=== PATIENT | female | born 1965 | race Caucasian/White ===

== ENCOUNTER → 2016-11-21 | Outpatient (CLI) | payer BC | LOC: RAD 10:38 | DX: M79.675 Pain in left toe(s) (principal) ==

== ENCOUNTER → 2017-07-22 | Outpatient (CLI) | payer BC | LOC: ULTRA 13:00 | DX: Z12.31 Encounter for screening mammogram for malignant neoplasm of breast (principal); J18.9 Pneumonia, unspecified organism; M25.78 Osteophyte, vertebrae; R10.2 Pelvic and perineal pain; Z98.890 Other specified postprocedural states; Z90.710 Acquired absence of both cervix and uterus; Z90.722 Acquired absence of ovaries, bilateral ==

== ENCOUNTER 2018-07-17 09:12 | Emergency (ER) | payer BC ==
[~2018-07-17] VITALS: Ht 152.4 cm; Wt 72.1 kg
--- NOTE | ~2018-07-17 | EKG ---
[address] [address] ELECTROCARDIOGRAM REPORT Name: DARRICKORESTES Room #: [facility]ITAL[facility] [id number] Admission: 07/17/18 Attend Phys: Discharge: 07/17/18 Date of : 61 Report #: [id number] THIS REPORT FOR: //name// [facility] ED Test Date: 2018-07-17 Test Time: 09:51:52 Pat Name: FELIPE HOLLINGSWORTH Department: Room: Gender: F Inspector Set Up And Lay Out: KFRIEDT : 1965 Requested By: Jun Sommers Order Number: [id number] MD: Toñito Johnson Measurements Intervals [place] Rate: 57 P: 20 OK: 179 QRS: 23 QRSD: 104 T: 31 QT: 420 QTc: 409 Interpretive Statements Sinus rhythm No previous ECG available for comparison Electronically Signed On 07-17-2018 20:00:28 [employer] by Toñito Johnson [email or web address] <ELECTRONICALLY SIGNED> By: Toñito Johnson MD 07/17/181999 0951 [id number] Toñito Johnson MD /EPI
[2018-07-17] MEDS ORDERED: LANSOPRAZOLE30 MG PO (09:27)
[2018-07-17] MEDS ORDERED: SYNTHROID100 MC1 PO (09:27)
[2018-07-17] MEDS ORDERED: PREDNISONE 10 M10 MG PO (09:27)
[2018-07-17] MEDS ORDERED: NEURONTIN 300300 M1 PO (09:28)
[2018-07-17] MEDS ORDERED: OXYCONTIN30 MG PO (09:29)
[2018-07-17] MEDS ORDERED: LOSARTAN-HCTZ1 EAC1 PO (09:29)
[2018-07-17] MEDS ORDERED: OXYCODONE HCL 55 MG PO (09:29)
[2018-07-17 10:13] LABS: ABSOLUTE NEUTROPHILS 6.7 thou/uL (1.4-8.2); BASOPHILS 0.8 % (0.0-2.0); EOSINOPHILS 0.7 % (0.0-3.0); HEMATOCRIT 44.4 % (37.0-47.0); HEMOGLOBIN 15.2 gm/dL (12.0-15.0); LYMPHOCYTES 37.3 % (24.0-44.0); MCH 31.3 pg (26.0-34.0); MCHC 34.3 g/dL (28.0-37.0); MCV 91.2 fL (80.0-100.0); MONOCYTES 7.5 % (1.0-8.0); PLATELET COUNT 302 thou/uL (150-400); POLYS 53.7 % (36.0-66.0); RBC 4.86 mil/uL (4.20-5.00); RDW 13.5 % (10.5-14.5); WBC 12.5 thou/uL (4.0-11.0)
[2018-07-17] MEDS ORDERED: NORFLEX100 MG PO (10:15)
[2018-07-17] MEDS ORDERED: NAPROSYN500 MG PO (10:15)
[2018-07-17 10:26] LABS: ANION GAP 12 mmol/L (7-16); BUN 16 mg/dL (7-18); CALCIUM 10.1 mg/dL (8.5-10.1); CHLORIDE 101 mmol/L (98-107); CO2 29 mmol/L (21-32); CREATININE 0.8 mg/dL (0.6-1.0); GLUCOSE 92 mg/dL (74-106); SODIUM 142 mmol/L (136-145)
[2018-07-17 10:29] LABS: POTASSIUM 2.7 mmol/L (3.5-5.1)
[2018-07-17 10:35] LABS: ALBUMIN 3.8 g/dL (3.4-5.0); SGOT 19 U/L (15-37); SGPT 24 U/L (30-65); TOTAL BILIRUBIN 0.5 mg/dL (<0.1-1.0); TOTAL PROTEIN 7.8 g/dL (6.4-8.2); TROPONIN-I <0.06 ng/mL (<0.06)
[2018-07-17] MEDS ORDERED: POTASSIUM20 PO (10:41)
[2018-07-17 11:27] VITALS: BP 131/75
== END 2018-07-17 11:41 | disposition home or self-care (01) ==
LOC: ER 09:12
PROVIDERS: Emergency Medicine
DX: E87.6 Hypokalemia (principal); J06.9 Acute upper respiratory infection, unspecified; R25.2 Cramp and spasm; F17.210 Nicotine dependence, cigarettes, uncomplicated; Z88.8 Allergy status to other drugs, medicaments and biological substances

== ENCOUNTER → 2018-07-27 | Outpatient (CLI) | payer BC ==
[~2018-07-27] MED LIST: LANSOPRAZOLE30 MG PO; LOSARTAN-HCTZ1 EAC1 PO; NAPROSYN500 MG PO; NEURONTIN 300300 M1 PO; NORFLEX100 MG PO; OXYCODONE HCL 55 MG PO; OXYCONTIN30 MG PO; POTASSIUM20 PO; PREDNISONE 10 M10 MG PO; SYNTHROID100 MC1 PO
== END ==
LOC: RAD 10:38
DX: M47.894 Other spondylosis, thoracic region (principal); M41.54 Other secondary scoliosis, thoracic region

== ENCOUNTER → 2021-01-15 | Outpatient (CLI) | payer BC | LOC: RAD 09:29 | PROVIDERS: ATTEND Neuromusculoskeletal Medicine & OMM | DX: Z12.31 Encounter for screening mammogram for malignant neoplasm of breast (principal) ==